=== PATIENT | male | born 1990 | race American Indian/Alaskan Native ===

== ENCOUNTER 2017-04-18 07:43 | Day surgery (SDC) | payer OTHER ==
[~2017-04-18 07:43] MED LIST: ANCEF/STERILE WATER 2 GM/20 ML 2 GM/20 ML SYRINGE IV NR; VANCOMYCIN/NS 1 GM/250 ML 1 GM/250 ML BAG IV NR
--- NOTE | 2017-04-18 08:31 | Anesthesia Day of Surgery ---
Anesthesia Day of Surgery - Day of Surgery Patient Examined: Yes Patient H&P Reviewed: Yes Patient is NPO: Yes
--- NOTE | 2017-04-18 08:31 | Anesthesia Consultation ---
Anesthesia Consult and Med Hx Date of service: 04/18/17 - Airway Anesthetic Teeth Evaluation: Good, Chipped (front teeth jagged) ROM Head & Neck: Adequate Mental/Hyoid Distance: Adequate Mallampati Class: Class II Intubation Access Assessment: Probably Good - Pulmonary Exam CTA: Yes - Cardiac Exam Cardiac Exam: RRR - Pre-Operative Health Status ASA Pre-Surgery Classification: ASA1 Proposed Anesthetic Plan: General - Pulmonary Hx Smoking: No Hx Sleep Apnea: No (ARTIS PRE SCREEN LOW RISK.) - Cardiovascular System Hx Hypertension: No - Other Systems Hx Cancer: No - Additional Comments Anesthesia Medical History Comments: no previous anesthesia
[2017-04-18] MEDS ORDERED: XYLOCAINE MPF 2% ONE (08:46)
[2017-04-18] MEDS ORDERED: DIPRIVAN 10 MG/ML IV ONE (08:46)
[2017-04-18] MEDS ORDERED: DILAUDID ONE (08:46)
[2017-04-18] MEDS ORDERED: VERSED IV NR (09:00)
[2017-04-18] MEDS ORDERED: LACTATED RINGERS 1,000 ML IV SCH (09:00)
[2017-04-18] MEDS ORDERED: PEPCID IV NR (09:00)
[2017-04-18] MEDS ORDERED: MARCAINE 0.25% INFILTRATI ONE ×2 (09:28→10:38)
[2017-04-18] MEDS ORDERED: XYLOCAINE 1% 20 mL ONE (09:28)
[2017-04-18] MEDS ORDERED: ANCEF/STERILE WATER 2 GM/20 ML IV NR (10:00)
[2017-04-18] MEDS ORDERED: DILAUDID IV PRN (10:05)
[2017-04-18] MEDS ORDERED: NEOSPORIN GU IR ONE ×2 (10:36→10:38)
[2017-04-18] MEDS ORDERED: VANCOMYCIN VIAL ONE (10:36)
[2017-04-18] MEDS ORDERED: NACL 0.9% 100 ML ONE ×2 (10:37→10:55)
[2017-04-18] MEDS ORDERED: XYLOCAINE 1% 20 mL INFILTRATI ONE (10:38)
[2017-04-18] MEDS ORDERED: NACL 0.9% IR ONE (10:38)
[2017-04-18] MEDS ORDERED: NACL 0.9% IV ONE (10:38)
[2017-04-18] MEDS ORDERED: SUBLIMAZE ONE (10:47)
[2017-04-18] MEDS ORDERED: ZOFRAN ONE (10:49)
[2017-04-18] MEDS ORDERED: ZOFRAN IV PRN (11:00)
[2017-04-18] MEDS ORDERED: PERCOCET 5/325 PO PRN (11:00)
[2017-04-18] MEDS ORDERED: NEO SYNEPHRINE/NS Syringe(OR USE) IV ONE (11:00)
[2017-04-18] MEDS ORDERED: LACTATED RINGERS 1,000 ML ONE (11:02)
--- NOTE | 2017-04-18 12:59 | Post Anesthesia Evaluation ---
- Post Anesthesia Evaluation Patient Participated: Yes Airway Patent: Yes Stable Respiratory Function: Yes Temp > 96.8F: Yes Pain Manageable: Yes Adequeate Hydration: Yes Anesthesia Complications: No
--- NOTE | 2017-04-18 13:02 | Post Operative Note ---
Date of procedure: 04/18/17 Pre-op diagnosis: L undecsended testes Post-op diagnosis: same Findings: atrophic Procedure: l ih repair l orch abd insertion testicular implant Anesthesia: GETA Surgeon: TORO LEMUS Estimated blood loss: minimal Pathology: list (L testes) Specimen disposition: to lab Condition: stable Disposition: PACU
--- NOTE | 2017-04-18 13:04 | Discharge Summary ---
Short Stay Discharge Plan Activity: other (no straining ) Weight Bearing Status: Full Weight Bearing Diet: regular Wound: open to air Special Instructions: other Durable Medical Equipment Needed Upon Discharge: other (ice packs to groing in rr and x 24 hrs ) Follow up with: PRIMARY CARE, [Primary Care Provider] - 7 Days TORO LEMUS MD [Staff Physician] - 7 Days Forms: Outpatient Surgery DC Inst.
[2017-04-18 13:22] VITALS: BP 151/68
--- NOTE | 2017-04-18 13:45 | Operative Report ---
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 PROCEDURE: Left inguinal exploration, left radical orchiectomy for atrophic testis, left inguinal hernia repair with insertion of testicular prosthesis. SURGEON: Moses Vasquez M.D. ANESTHESIA: General. FINDINGS: This is a gentleman with an undescended testis. He is 27 years old and he now presents for treatment. Based on the testis and the architecture and the size, we would determine whether we should bring it down, but the feeling as discussed preoperatively was to do an orchiectomy because of his age and because of the size based on ultrasound. DESCRIPTION OF PROCEDURE: The patient was brought to the operating room and placed on the operating table. Following induction of anesthesia, he was placed in the supine position and prepped and draped in usual sterile fashion. An oblique incision was made over the left hemiscrotum. This was carried through the skin and superficial fascia. Small blood vessels were cauterized or tied. We carried this down to the external oblique aponeurosis through Elvia's fascia. There was no testis visualized at the external ring, which was basically closed with some thickened tissue going through it, which was probably the thickened gubernaculum. The external oblique aponeurosis was opened and we could see a bulge within the canal. There was no specific sac. There was a large amount of retroperitoneal fat anteromedially with the defect which was not large and very good tissue on the floor. At this point, testis was noted. We opened up the tunica vaginalis and testis was delivered that measured approximately 2.5 cm. We divided the gubernaculum and there was lots of scarring and thickened cremasteric fascia around it. This was all removed and although the testis did not feel like there was a mass, it looked like it was very small, increased risk for problems down the road, and we decided to do an orchiectomy. Cord was divided into 3 segments and ligated. The area where the defect was from the retroperitoneum was anteromedially and there was a lot of fibrofatty tissue, which was divided. The defect was approximated with Bassini repair with interrupted 2-0 Vicryl sutures. At this point, the wound was irrigated. We developed a scrotal pocket using blunt dissection and the testicular prosthesis was inserted and sutured to the dependent portion of the scrotum being sure not to buttonhole the skin. The patient tolerated the procedure well. Excellent cosmetic result was achieved. The wound was irrigated through the case. He was given preoperative Ancef and vancomycin in the OR and he was brought to the recovery room with a sterile dressing. The closure was accomplished with 2-0 Vicryl for the aponeurosis, 3-0 Vicryl for the superficial fascia, and 4-0 for the skin and Steri-Strips and brought to recovery in stable condition. There was minimal blood loss. JOB# [id number] NAYELI/GEE
== END 2017-04-18 14:19 | disposition home or self-care (01) ==
LOC: OR 07:43
PROVIDERS: ATTEND Urology
DX: Q55.1 Hypoplasia of testis and scrotum (principal); Q53.10 Unspecified undescended testicle, unilateral; K40.90 Unilateral inguinal hernia, without obstruction or gangrene, not specified as recurrent
CPT/HCPCS: 54520; 88305; J0690; J1170; J2250; J2370; J2405; J2704; J3010; J3370; J7120